=== PATIENT | male | born 1975 | race Two or more races ===

== ENCOUNTER 2022-12-19 16:55 | Emergency (ER) | payer MEDICAID, OTHER ==
[~2022-12-19] VITALS: Ht 167.6 cm; Wt 94.0 kg
[2022-12-19 18:38] VITALS: BP 154/110; PULSE 78; RESP 22; TEMP 98.3; O2SAT 93
[2022-12-19] MEDS ORDERED: DexAMETHasone SOD PHOS 10MG/1ML VIAL INJ IM ONE (20:45)
[2022-12-19] MEDS ORDERED: KETOROLAC TROMETH 60MG/2ML VIAL IM ONE (20:45)
[2022-12-19] MEDS ORDERED: HYDROcodone-ACET 7.5/325MG TAB PO ONE (20:45)
[2022-12-19] MEDS ORDERED: CYCL-611 PO (20:53)
[2022-12-19] MEDS ORDERED: IBUP1TAB5 PO (20:53)
[2022-12-19] MEDS ORDERED: HYDR-4902 PO (20:53)
== END 2022-12-19 21:30 | disposition home or self-care (01) ==
LOC: ER 16:55
DX: S20.211A Contusion of right front wall of thorax, initial encounter (principal); S30.1XXA Contusion of abdominal wall, initial encounter; K40.90 Unilateral inguinal hernia, without obstruction or gangrene, not specified as recurrent; I88.0 Nonspecific mesenteric lymphadenitis; K76.0 Fatty (change of) liver, not elsewhere classified; N62 Hypertrophy of breast; K76.89 Other specified diseases of liver; I10 Essential (primary) hypertension; W18.31XA Fall on same level due to stepping on an object, initial encounter; Y93.89 Activity, other specified; Y92.89 Other specified places as the place of occurrence of the external cause; Y99.8 Other external cause status
CPT/HCPCS: 71250; 74176; 96372; 99285; J1100; J1885